=== PATIENT | female | born 1965 | race Two or more races ===

== ENCOUNTER 2021-03-28 16:38 | Emergency (ER) | payer MEDICARE, MEDICAID ==
[~2021-03-28] VITALS: Ht 160 cm; Wt 59.0 kg
[2021-03-28 16:39] VITALS: BP 129/72
== END 2021-03-28 19:44 | disposition left against medical advice (07) ==
LOC: ER 16:38
DX: J11.1 Influenza due to unidentified influenza virus with other respiratory manifestations (principal); R05 Cough; R09.81 Nasal congestion; Z53.21 Procedure and treatment not carried out due to patient leaving prior to being seen by health care provider